=== PATIENT | male | born 1980 | race Caucasian/White ===

== ENCOUNTER 2023-11-13 08:27 | Emergency (ER) | payer OTHER ==
[~2023-11-13] VITALS: Ht 182.9 cm; Wt 113.4 kg
[2023-11-13 08:34] VITALS: BP_SYST 157; PULSE 80; RESP 16; TEMP 97.2; O2SAT 98
[2023-11-13 10:36] VITALS: BP_SYST 157; PULSE 80; RESP 16; TEMP 97.2; O2SAT 98
== END 2023-11-13 10:37 | disposition home or self-care (01) ==
LOC: SED 08:27
DX: S09.8XXA Other specified injuries of head, initial encounter (principal); M54.2 Cervicalgia; W01.0XXA Fall on same level from slipping, tripping and stumbling without subsequent striking against object, initial encounter; Y93.89 Activity, other specified; Y92.89 Other specified places as the place of occurrence of the external cause; Y99.8 Other external cause status
CPT/HCPCS: 70450-TC; 72125-TC; 99284